=== PATIENT | female | born 1980 | race Caucasian/White ===

== ENCOUNTER 2017-03-12 11:21 | Emergency (ER) | payer OTHER ==
[2017-03-12] MEDS ORDERED: Ibuprofen 200 MG TAB ONE (12:41)
--- NOTE | 2017-03-12 12:45 | RAD ---
THREE VIEWS OF THE LEFT ANKLE: INDICATION: Tripped and fell. COMPARISON: None. FINDINGS: No acute fracture or subluxation is evident. There is soft tissue swelling surrounding the left ankl e. Visualized hindfoot appears within normal limits. IMPRESSION: 1. No acute osseous abnormality. 2. Prominent soft tissue swelling of the left ankle. POS: [facility]
== END 2017-03-12 13:00 | disposition home or self-care (01) ==
LOC: ERS 11:21
DX: S93.402A Sprain of unspecified ligament of left ankle, initial encounter (principal); F25.9 Schizoaffective disorder, unspecified; X50.1XXA Overexertion from prolonged static or awkward postures, initial encounter

== ENCOUNTER 2017-04-05 18:46 | Emergency (ER) | payer OTHER | END 2017-04-05 21:58 | disposition home or self-care (01) | LOC: ERS 18:46 | DX: J06.9 Acute upper respiratory infection, unspecified (principal); F25.9 Schizoaffective disorder, unspecified; Z79.899 Other long term (current) drug therapy | CPT/HCPCS: 99283 ==